=== PATIENT | male | born 1975 | race Two or more races ===

== ENCOUNTER → 2022-09-29 | Outpatient (CLI) | payer MEDICAID ==
[~2022-09-29] VITALS: Ht 167.6 cm; Wt 106.6 kg
== END | disposition home or self-care (01) ==
LOC: Rad HDHVI 13:57
PROVIDERS: ATTEND Internal Medicine Cardiovascular Disease
DX: Z01.810 Encounter for preprocedural cardiovascular examination (principal); I10 Essential (primary) hypertension; R94.31 Abnormal electrocardiogram [ECG] [EKG]; Z79.899 Other long term (current) drug therapy
CPT/HCPCS: 78452; 93017; 96374; A9500

== ENCOUNTER → 2022-10-08 | Outpatient (CLI) | payer MEDICAID | END | disposition home or self-care (01) | LOC: Rad HDHVI 08:03 | PROVIDERS: ATTEND Internal Medicine Cardiovascular Disease | DX: I34.0 Nonrheumatic mitral (valve) insufficiency (principal); I10 Essential (primary) hypertension | CPT/HCPCS: 93306 ==